=== PATIENT | female | born 1960 | race Caucasian/White ===

== ENCOUNTER → 2023-06-11 16:03 | Outpatient (REF) | payer OTHER, SELFPAY | LOC: WDC 16:03 | PROVIDERS: ATTENDING PHYSICIAN Family Medicine | DX: Z12.31 Encounter for screening mammogram for malignant neoplasm of breast (principal) | CPT/HCPCS: 77063; 77067 ==

== ENCOUNTER → 2023-07-02 13:48 | Outpatient (REF) | payer OTHER, SELFPAY | LOC: DHVS 13:48 | PROVIDERS: ATTENDING PHYSICIAN Physician Assistant | DX: I65.22 Occlusion and stenosis of left carotid artery (principal); I70.8 Atherosclerosis of other arteries | CPT/HCPCS: 93880; 93923; 93930 ==

== ENCOUNTER → 2024-01-27 12:37 | Outpatient (REF) | payer OTHER, SELFPAY | LOC: RAD 12:37 | PROVIDERS: ATTENDING PHYSICIAN Surgery Vascular Surgery; FAMILY PHYSICIAN Physician Assistant | DX: I70.8 Atherosclerosis of other arteries (principal); I65.22 Occlusion and stenosis of left carotid artery | CPT/HCPCS: 93923; 93930 ==

== ENCOUNTER → 2024-06-07 12:21 | Outpatient (REF) | payer OTHER, SELFPAY | LOC: RCS 12:21 | PROVIDERS: ATTENDING PHYSICIAN Family Medicine; FAMILY PHYSICIAN Physician Assistant | DX: R94.31 Abnormal electrocardiogram [ECG] [EKG] (principal); Z82.49 Family history of ischemic heart disease and other diseases of the circulatory system | CPT/HCPCS: 93017; 93922; 93925 ==

== ENCOUNTER → 2024-06-14 15:41 | Outpatient (REF) | payer OTHER, SELFPAY | LOC: WDC 15:41 | PROVIDERS: ATTENDING PHYSICIAN Family Medicine | DX: Z12.31 Encounter for screening mammogram for malignant neoplasm of breast (principal) | CPT/HCPCS: 77063; 77067 ==

== ENCOUNTER → 2024-06-17 06:58 | Outpatient (REF) | payer OTHER, SELFPAY | LOC: RAD 06:58 | PROVIDERS: ATTENDING PHYSICIAN Surgery Vascular Surgery; FAMILY PHYSICIAN Family Medicine | DX: I77.1 Stricture of artery (principal); I77.9 Disorder of arteries and arterioles, unspecified | CPT/HCPCS: 75635; Q9967 ==

== ENCOUNTER 2024-06-18 06:23 | Day surgery (SDC) | payer OTHER, SELFPAY ==
[2024-06-18] VITALS (16 sets, daily range): BP systolic 123–166; BP diastolic 66–81; BMI 24.8
[2024-06-18] MEDS: LOW STRENGTH ASPIRIN 81 MG PO (07:13)
[2024-06-18 07:22] LABS: Glucose - Point of Care 129 mg/dl (70-99)
[2024-06-18 07:30] LABS: Hematocrit 37.3 % (37.0-47.0); Hemoglobin 12.6 g/dL (12.0-16.0); Mean Corp Hgb Conc. 33.8 g/dL (33.0-37.0); Mean Platelet Volume 11.3 fL (7.4-10.4); Platelet Count 270 10^3/uL (130-400); Red Blood Cell Count 4.66 10^6/uL (4.20-5.40); Red Cell Dist. Width 14.4 % (11.5-14.5); White Blood Cell Count 5.4 10^3/uL (4.8-10.8)
[2024-06-18 08:20] LABS: ACT-LR - POC 223 Seconds (116-155)
[2024-06-18 08:28] LABS: ACT-LR - POC 266 Seconds (116-155)
[2024-06-18 08:38] LABS: ACT-LR - POC 110 Seconds (116-155)
[2024-06-18 08:46] LABS: ACT-LR - POC 290 Seconds (116-155)
[2024-06-18 08:58] LABS: ACT-LR - POC 285 Seconds (116-155)
[2024-06-18 09:18] LABS: ACT-LR - POC 300 Seconds (116-155)
--- NOTE | 2024-06-18 09:43 | ITS.CL.CATH ---
Assistant Surveyor - Catheterization
Cardiac Catheterization
Procedure Report:
LEFT HEART CATHETERIZATION AND CORONARY INTERVENTION
Date of Procedure: June 18, 2024
Referring: Elizabeth Hill.
PROCEDURES:
1. Left heart catheterization, coronary angiogram.
2. Ultrasound-guided access.
3. Successful percutaneous coronary artery intervention of ulcerated 70 to 80% distal RCA with one 3.0 x 18 mm Medtronic Sharon drug-eluting stent, successfully postdilated using a 3.25 x 15 mm NC balloon at 16 sherice distally and 18 sherice proximally with
an excellent angiographic and IVUS based result.
4. Successful percutaneous coronary artery intervention of diffuse 70 to 75% proximal to mid RCA stenosis with 2 overlapping 3.0 x 23 millimeter Xience wolf point drug-eluting stent and a 3.5 x 8 mm Medtronic Herberth drug-eluting stent successfully
postdilated using a 3.5 x 15 mm NC balloon at 18 sherice distally and a 3.75 x 12 mm NC balloon at 16 sherice proximally with an excellent angiographic and IVUS based result.
5. Intravascular ultrasound (IVUS)
INDICATION: Abnormal stress test with ongoing exertional chest discomfort
ACCESS: Right radial artery, 6 [place] sheath, under ultrasound guidance
Ultrasound was utilized for vascular access. The radial artery was visualized under ultrasound, and the vessel was patent and pulsatile. An image was stored permanently in the patient's medical record. Under direct ultrasound guidance, a 6 [place]
sheath was inserted into the artery using a micropuncture kit through a modified Seldinger technique.
HEMODYNAMICS : (mmHg)
AO (s/d) : 135/70
LV (s/d) : 139/7
LVEDP : 15
CORONARY FINDINGS
DOMINANCE: Right
LEFT MAIN: The left main artery is a small to medium caliber vessel which gives rise to the left anterior descending artery and the left circumflex artery. There is eccentric 20% ostial stenosis
LEFT ANTERIOR DESCENDING: The left anterior descending artery is a small to medium caliber vessel with a large septal branch. LAD proper is moderately tortuous. In the midportion between the 2 diagonal branches there is eccentric 50% stenosis.
CIRCUMFLEX: The left circumflex artery is a small caliber vessel which gives rise to 1 small caliber OM branch. There is minimal luminal irregularities.
RIGHT CORONARY ARTERY: The right coronary artery is a large-caliber, dominant vessel which gives rise to the right posterior descending artery and a large right posterolateral system. There is diffuse 70 to 75% proximal to mid RCA stenosis. Distal
RCA has a ulcerated, irregular 70 to 80% focal stenosis just proximal to the bifurcation of the RPDA and the RPL branch. RPL has an eccentric 30 to 40% stenosis in the proximal portion. Intervention was performed as below.
CORONARY INTERVENTION: Decision was made to proceed with intervention to the right coronary artery. Additional heparin was given to maintain a therapeutic ACT throughout the case. The right coronary artery was selectively engaged using a 6 [place]
JR4 guide catheter. A 190 cm 0.014' run-through coronary wire was carefully navigated into the distal vessel. The distal RCA lesion was predilated using a 3.0 x 12 mm semicompliant balloon at 14 sherice with good expansion. The proximal lesions were
also expanded using the same balloon at 14 sherice with good expansion. The distal lesion was stented with a 3.0 x 18 mm Medtronic Herberth drug-eluting stent. The proximal lesion was then stented using a 3.0 x 23 mm Xience wolf point drug-eluting stent.
Using IVUS guidance, the distal stent was postdilated using a 3.25 x 15 mm NC balloon at 16 sherice distally and 18 sherice proximally with an excellent angiographic and IVUS based result without evidence of distal or proximal edge dissections and a well
apposed and well-expanded stent. It was extremely challenging advancing the proximal NC balloon despite multiple attempts and therefore a 6 [place]araguan guide liner was used for additional support. Using GuideLiner support we were able to advance a 3.5
x 15 mm NC balloon which was inflated to 18 sherice distally and proximally. Post angiography showed a possible proximal edge dissection which was then covered with a overlapping 3.5 x 8 mm Medtronic Sharon drug-eluting stent which was postdilated using
IVUS guidance with a 3.75 x 12 mm NC balloon at 16 sherice proximally with an excellent angiographic and IVUS based result without evidence of proximal or distal edge dissections and a well apposed and well-expanded stent. Patient tolerated the
procedure well. She was loaded with 600 mg of Plavix at the end of the case. No acute complications.
SEDATION: 109 minutes of procedural sedation was utilized. An independent medical physics teacher was present to assist with and help manage the patient's level of consciousness and physiologic status.
RADIATION SUMMARY: Fluoro Time (min): 23.0, Dose (mGy): 1063.65, DAP (Gy.cm2) : 77.2
Closure Device: Vascular band over right radial artery, 10 cc of air.
CONCLUSIONS
1. Successful percutaneous coronary artery intervention of ulcerated 70 to 80% distal RCA with one 3.0 x 18 mm Medtronic Sharon drug-eluting stent, successfully postdilated using a 3.25 x 15 mm NC balloon at 16 sherice distally and 18 sherice proximally with
an excellent angiographic and IVUS based result.
2. Successful percutaneous coronary artery intervention of diffuse 70 to 75% proximal to mid RCA stenosis with 2 overlapping 3.0 x 23 millimeter Xience wolf point drug-eluting stent and a 3.5 x 8 mm Medtronic Herberth drug-eluting stent successfully
postdilated using a 3.5 x 15 mm NC balloon at 18 sherice distally and a 3.75 x 12 mm NC balloon at 16 sherice proximally with an excellent angiographic and IVUS based result.
3. Mildly elevated LVEDP at 15mmHg
4. The left anterior descending artery is a small to medium caliber vessel with a large septal branch. LAD proper is moderately tortuous. In the mid LAD between the 2 diagonal branches there is eccentric 50% stenosis.
RECOMMENDATIONS
1. Branch. LAD proper antiplatelet therapy with daily baby aspirin and Plavix 75 mg daily along with high intensity statin and beta-steven as tolerated.
2. Aggressive management of cardiovascular risk factors.
3. Wean radial band per protocol.
4. Full echocardiogram as an outpatient to assess biventricular function and rule out any significant valvular abnormalities.
5. If residual or recurrent anginal symptoms or recurrent, consider iFR guided intervention to mid LAD.
Copy to: Elizabeth Hill.
Marcelina Mills MD, FAC, [facility]
[2024-06-18 11:03] LABS: Glucose - Point of Care 108 mg/dl (70-99)
[2024-06-18] MEDS: TYLENOL 650 MG PO (13:46)
--- NOTE | 2024-06-18 14:37 | W.PN.UPDATE ---
Update Note
Progress Note Update
63 yo WF s/p PCI RCA x 3 (same day). She had some mild chest tightness not related to activity most likely stretch pain and some mild R rad site tenderness site c/d/i with good pulse and cap refill. EKG SR no ST changes, kareen diet. She will be on
DAPT ASA/Plavix. We will add amlodipine for her HTN and increase rosuvastatin to 40mg daily. Hold Metformin 48 hours post procedure. Cardiac rehab c/s. She will f/u [employer] at [facility] in 2 weeks. She is for dc home after 2pm.
CONCLUSIONS
1. Successful percutaneous coronary artery intervention of ulcerated 70 to 80% distal RCA with one 3.0 x 18 mm Medtronic [place] drug-eluting stent, successfully postdilated using a 3.25 x 15 mm NC balloon at 16 sherice distally and 18 sherice proximally with
an excellent angiographic and IVUS based result.
2. Successful percutaneous coronary artery intervention of diffuse 70 to 75% proximal to mid RCA stenosis with 2 overlapping 3.0 x 23 millimeter Xience wolf point drug-eluting stent and a 3.5 x 8 mm Medtronic [place] drug-eluting stent successfully
postdilated using a 3.5 x 15 mm NC balloon at 18 sherice distally and a 3.75 x 12 mm NC balloon at 16 sherice proximally with an excellent angiographic and IVUS based result.
3. Mildly elevated LVEDP at 15mmHg
4. The left anterior descending artery is a small to medium caliber vessel with a large septal branch. LAD proper is moderately tortuous. In the mid LAD between the 2 diagonal branches there is eccentric 50% stenosis.
== END 2024-06-18 14:35 | disposition home or self-care (01) ==
LOC: CATH 06:23
PROVIDERS: ATTENDING PHYSICIAN Internal Medicine Interventional Cardiology; FAMILY PHYSICIAN Physician Assistant; OTHER PHYSICIAN Internal Medicine Cardiovascular Disease
DX: I25.10 Atherosclerotic heart disease of native coronary artery without angina pectoris (principal); R07.89 Other chest pain; R94.39 Abnormal result of other cardiovascular function study; Z79.82 Long term (current) use of aspirin; Z79.02 Long term (current) use of antithrombotics/antiplatelets
CPT/HCPCS: 92978; 99152; 99153; 76937; 82962; 85027; 85347; 93005; 93458; C1725; C1753; C1874; C1894; C9600; Q9967

== ENCOUNTER → 2024-06-26 07:07 | Outpatient (REF) | payer OTHER, SELFPAY | LOC: RCS 07:07 | PROVIDERS: ATTENDING PHYSICIAN Internal Medicine Cardiovascular Disease; FAMILY PHYSICIAN Physician Assistant | DX: R06.02 Shortness of breath (principal) | CPT/HCPCS: 93306 ==

== ENCOUNTER → 2024-07-05 07:08 | Outpatient (REF) | payer OTHER, SELFPAY | LOC: RAD 07:08 | PROVIDERS: ATTENDING PHYSICIAN Surgery Vascular Surgery; FAMILY PHYSICIAN Physician Assistant | DX: I65.22 Occlusion and stenosis of left carotid artery (principal); I70.8 Atherosclerosis of other arteries | CPT/HCPCS: 93880; 93923; 93930 ==

== ENCOUNTER 2024-07-27 06:10 | Day surgery (SDC) | payer OTHER, SELFPAY ==
[2024-07-27] VITALS (20 sets, daily range): BP systolic 117–148; BP diastolic 55–80; BMI 24.8
[2024-07-27 07:01] LABS: Glucose - Point of Care 139 mg/dl (70-99)
[2024-07-27] MEDS: NSS 191 ML IV (07:10)
[2024-07-27 07:24] LABS: INR 0.99; PT 13.4 Sec (11.4-14.6)
[2024-07-27 07:25] LABS: APTT 31.3 Sec (23.4-35.0)
[2024-07-27 07:27] LABS: Blood Urea Nitrogen 17 mg/dl (7-17); Calcium 9.8 mg/dl (8.4-10.2); Carbon Dioxide 26 mmol/L (22-30); Chloride 107 mmol/L (98-107); Estimated Creatinine Clearance 69 ml/min; Glucose 148 mg/dl (70-99); Potassium 4.3 mmol/L (3.5-5.1); Sodium 142 mmol/L (135-145); eGFR > 60.00
--- NOTE | 2024-07-27 07:35 | W.SUR.PREOP ---
Pre-Operative Surgical Note
-
I have examined this patient prior to the performance of the scheduled procedure.
The patient's condition is unchanged from the time of the current History and
Physical and the patient is able to undergo the scheduled procedure.
[2024-07-27 07:36] LABS: Hematocrit 34.1 % (37.0-47.0); Hemoglobin 11.4 g/dL (12.0-16.0); Mean Corp Hgb Conc. 33.4 g/dL (33.0-37.0); Mean Corpuscular Hgb 26.8 pg (27.0-31.0); Mean Platelet Volume 10.7 fL (7.4-10.4); Platelet Count 264 10^3/uL (130-400); Red Blood Cell Count 4.26 10^6/uL (4.20-5.40); Red Cell Dist. Width 14.7 % (11.5-14.5); White Blood Cell Count 5.9 10^3/uL (4.8-10.8)
[2024-07-27 09:17] LABS: Glucose - Point of Care 127 mg/dl (70-99)
--- NOTE | 2024-07-27 09:22 | OR.RPT ---
Operative Report
Operative Report
Date of Operation: 07/27/2024
Pre Op Diagnosis:
1. [place] artery atherosclerosis with debilitating right lower extremity claudication
2. Diabetes with atherosclerosis
Post Op Diagnosis:
1. [place] artery atherosclerosis with debilitating right lower extremity claudication
2. Diabetes with atherosclerosis
Procedure:
1.) intravascular lithotripsy to right common iliac artery stenosis (9 mm x 30 mm L6 shockwave balloon)
2.) balloon angioplasty and stenting of right common iliac artery ([place] VBX 8 mm x 59 mm)
3.) diagnostic aortobiiliac arteriogram
4.) diagnostic right lower extremity arteriogram
5.) ultrasound-guided percutaneous access to the right common femoral artery
Surgeon: Tank Baker III, MD
Golf Instructor: Elke Canseco MD PGY1
Anesthesia: Sedation with local
Fluoroscopy:
10.9 min
255 mGy
42.29 Gy.cm2
Complications: None
Estimated Blood Loss: Minimal
History and Indications for Procedure: 64-year-old female with diabetes and peripheral arterial occlusive disease. She developed debilitating right lower extremity claudication.
Procedure in Detail: Lesvia Sebastian was correctly identified and placed supine on the operating table. After adequate induction of anesthesia the bilateral groins were prepped and draped in the usual sterile fashion. A timeout was performed with
the nursing and anesthesia staff confirming the patient's identity as well as the nature and laterality of the procedure.
The right common femoral artery was identified under ultrasound guidance. The artery was patent with calcified luminal plaque identified. The superior and inferior aspects of the femoral head were identified with radiographic guidance and marked at
the skin level. The proposed puncture site was infiltrated with local anesthesia. Under ultrasound guidance we accessed the right common femoral artery with a micropuncture needle and upsized to a 5 Fr sheath over a Bentson wire. A retrograde
diagnostic aorto-biiliac arteriogram was performed:
AORTO-ILIAC ARTERIOGRAM:
Aorta: Peripherally calcified but patent with no stenosis identified.
Right common iliac artery: High-grade calcified stenosis
Right external iliac artery: Patent with no significant stenosis identified
Left common iliac artery: Patent with no significant stenosis identified
Left external iliac artery: Patent with no significant stenosis identified
ENDOVASCULAR INTERVENTION: Systemic heparin was administered. Exchanged out for a 7 Fr sheath over a Storq wire. Exchanged out for a V18 wire. Due to the heavily calcified nature of the right common iliac artery disease and in an effort to modify
the calcium to achieve maximum luminal gain with endovascular intervention I elected to proceed with intravascular lithotripsy. A 9 mm x 30 mm L6 shockwave balloon was placed across the stenosis under roadmap guidance. Alternating rounds of
lithotripsy pulse delivery at sub-nominal pressure and angioplasty at nominal pressure was performed across the stenosis. In between rounds of pulse delivery and angioplasty the balloon was deflated and repositioned under roadmap guidance. All 300
pulses were delivered. Subsequent arteriogram demonstrated significant luminal gain and improvement in the appearance of the stenosis. A dissection was identified. Under roadmap guidance I brought into position and 8 mm x 59 mm [place] VBX stent.
This was positioned in the desired location and deployed by inflating the balloon to nominal pressure. The balloon was slowly deflated and removed over the wire. Subsequent arteriogram demonstrated an excellent technical result with a widely
patent right common iliac artery stent and brisk flow through the right iliac system.
A completion runoff arteriogram of the right lower extremity was performed which demonstrated the following:
RIGHT LOWER EXTREMITY:
Common femoral artery: Small diameter relative to the 7 Chinese sheath but patent. Calcified plaque.
Profunda femoral artery: Patent with no significant stenosis identified
Superficial femoral artery: Patent. Diffusely calcified with scattered areas of plaque and stenosis throughout
Popliteal artery: Bulky calcified plaque above the knee and behind the knee contributing to significant stenosis. Below the knee segment patent with no stenosis
Anterior tibial artery: Patent. Slower flow compared to the PT and peroneal
Tibioperoneal trunk: Patent
Peroneal artery: Patent
Posterior tibial artery: Patent
Satisfied with this result we concluded the procedure. Protamine was administered. The sheath was secured in place with the plan to pull it in the recovery room.
The patient tolerated the procedure well and was taken to the recovery area in stable condition.
Attestation: I was present and responsible for the entire procedure.
Signed:
Tank Baker III, MD
[facility]
[phone] (cell)
== END 2024-07-27 15:40 | disposition home or self-care (01) ==
LOC: CATH 06:10
PROVIDERS: ATTENDING PHYSICIAN Surgery Vascular Surgery; FAMILY PHYSICIAN Family Medicine; OTHER PHYSICIAN Internal Medicine Cardiovascular Disease; PRIMARYCARE PHYSICIAN Physician Assistant
DX: I70.211 Atherosclerosis of native arteries of extremities with intermittent claudication, right leg (principal); E11.51 Type 2 diabetes mellitus with diabetic peripheral angiopathy without gangrene; Z79.82 Long term (current) use of aspirin; Z79.02 Long term (current) use of antithrombotics/antiplatelets; Z79.84 Long term (current) use of oral hypoglycemic drugs; Z79.899 Other long term (current) drug therapy; E11.9 Type 2 diabetes mellitus without complications; E78.5 Hyperlipidemia, unspecified
CPT/HCPCS: C9765; 75625; 75716; 80048; 82962; 85027; 85610; 85730; C1769; C1874; C1894; Q9967

== ENCOUNTER → 2024-08-16 06:50 | Outpatient (REF) | payer OTHER, SELFPAY | LOC: RAD 06:50 | PROVIDERS: ATTENDING PHYSICIAN Surgery Vascular Surgery; FAMILY PHYSICIAN Family Medicine | DX: I77.1 Stricture of artery (principal) | CPT/HCPCS: 93922; 93925 ==

== ENCOUNTER → 2024-08-23 07:01 | Outpatient (REF) | payer OTHER, SELFPAY | LOC: RAD 07:01 | PROVIDERS: ATTENDING PHYSICIAN Surgery Vascular Surgery; FAMILY PHYSICIAN Physician Assistant | DX: I77.1 Stricture of artery (principal) | CPT/HCPCS: 93978 ==

== ENCOUNTER 2024-10-25 08:49 | Outpatient (RCR) | payer OTHER, SELFPAY ==
[2024-10-06 11:05] LABS: Glucose - Point of Care 170 mg/dl (70-99)
[2024-10-06 11:46] LABS: Glucose - Point of Care 87 mg/dl (70-99)
[2024-10-11 06:29] LABS: Glucose - Point of Care 234 mg/dl (70-99)
[2024-10-11 07:20] LABS: Glucose - Point of Care 106 mg/dl (70-99)
[2024-10-13 06:30] LABS: Glucose - Point of Care 182 mg/dl (70-99)
[2024-10-13 07:29] LABS: Glucose - Point of Care 130 mg/dl (70-99)
[2024-10-15 06:40] LABS: Glucose - Point of Care 165 mg/dl (70-99)
[2024-10-15 07:34] LABS: Glucose - Point of Care 139 mg/dl (70-99)
[2024-10-18 06:42] LABS: Glucose - Point of Care 154 mg/dl (70-99)
[2024-10-18 07:33] LABS: Glucose - Point of Care 130 mg/dl (70-99)
[2024-10-20 06:35] LABS: Glucose - Point of Care 145 mg/dl (70-99)
[2024-10-20 07:33] LABS: Glucose - Point of Care 129 mg/dl (70-99)
== END 2024-10-25 23:59 | disposition home or self-care (01) ==
LOC: CRHB 08:49
PROVIDERS: ATTENDING PHYSICIAN Internal Medicine Cardiovascular Disease
DX: I25.10 Atherosclerotic heart disease of native coronary artery without angina pectoris (principal); Z95.5 Presence of coronary angioplasty implant and graft; E78.5 Hyperlipidemia, unspecified
CPT/HCPCS: 82962; 93797; 93798

== ENCOUNTER 2024-11-24 08:43 | Outpatient (RCR) | payer OTHER, SELFPAY | END 2024-11-24 23:59 | disposition home or self-care (01) | LOC: CRHB 08:43 | PROVIDERS: ATTENDING PHYSICIAN Internal Medicine Cardiovascular Disease | DX: I25.10 Atherosclerotic heart disease of native coronary artery without angina pectoris (principal); Z95.5 Presence of coronary angioplasty implant and graft; E78.5 Hyperlipidemia, unspecified; I73.9 Peripheral vascular disease, unspecified | CPT/HCPCS: 93797; 93798 ==

== ENCOUNTER 2024-12-15 08:52 | Outpatient (RCR) | payer OTHER, SELFPAY | END 2024-12-15 23:59 | disposition home or self-care (01) | LOC: CRHB 08:52 | PROVIDERS: ATTENDING PHYSICIAN Internal Medicine Cardiovascular Disease; FAMILY PHYSICIAN Physician Assistant | DX: I25.10 Atherosclerotic heart disease of native coronary artery without angina pectoris (principal); Z95.5 Presence of coronary angioplasty implant and graft | CPT/HCPCS: 93797; 93798 ==

== ENCOUNTER → 2024-12-16 07:01 | Outpatient (REF) | payer OTHER, SELFPAY | LOC: HWRCS 07:01 | PROVIDERS: ATTENDING PHYSICIAN Nurse Practitioner; FAMILY PHYSICIAN Family Medicine | DX: I25.118 Atherosclerotic heart disease of native coronary artery with other forms of angina pectoris (principal) | CPT/HCPCS: 78452; 93017; A9500 ==

== ENCOUNTER → 2025-02-22 06:44 | Outpatient (REF) | payer OTHER, SELFPAY | LOC: RAD 06:44 | PROVIDERS: ATTENDING PHYSICIAN Physician Assistant; FAMILY PHYSICIAN Family Medicine | DX: I77.1 Stricture of artery (principal); I65.22 Occlusion and stenosis of left carotid artery; I73.9 Peripheral vascular disease, unspecified | CPT/HCPCS: 93880; 93922; 93923; 93925; 93930; 93978 ==